=== PATIENT | female | born 1980 ===

== ENCOUNTER 2023-11-05 16:12 | Outpatient (REF) | payer BC, SELFPAY ==
[2023-11-05 20:07] LABS: Abs Immature Grans 0.02 10^3/uL (0.0-0.06); Absolute Basophil Count 0.04 10^3/uL (0.0-0.2); Absolute Eosinophil Count 0.17 10^3/uL (0.0-0.7); Absolute Lymphocyte Count 1.71 10^3/uL (1.2-3.4); Absolute Monocyte Count 0.43 10^3/uL (0.1-0.8); Absolute Neutrophil Count 5.57 10^3/uL (1.2-6.7); Basophils % 0.5; Eosinophils % 2.1; HCT 43.6 % (36.0-46.0); HGB 14.6 g/dL (11.2-15.7); Immature Grans % 0.3; Lymphocytes % 21.5; MCHC 33.5 % (32.0-36.0); MCV 90 fL (80-95); MPV 11.9 fL (8.0-11.0); Monocytes % 5.4; Neutrophils % 70.2; Platelet Count 243 10^3/uL (130-400); RBC 4.86 10^6/uL (3.93-5.22); RDW-SD 39.1 fL; WBC 7.94 10^3/uL (4.4-10.8)
[2023-11-05 20:27] LABS: ALT 20 U/L (14-59); AST 21 U/L (15-37); Albumin 3.9 g/dL (3.4-5.0); Alkaline Phosphatase 56 U/L (46-116); Anion Gap 10.5 mmol/L (3-11); BUN 16 mg/dL (7-18); Bilirubin, Total 0.4 mg/dL (0.2-1.0); CO2 24.5 mmol/L (21.0-32.0); CREATININE 0.8 mg/dL (0.55-1.02); Chloride 105 mmol/L (98-107); Estimated GFR 94.87 (mL/min/1.73m2); Glucose 104 mg/dL (74-106); Potassium 4.3 mmol/L (3.5-5.1); Sodium 140 mmol/L (136-145); TSH (W/Ref FT4) 1.16 uIU/mL (0.36-3.74); Total Protein 7.3 g/dL (6.4-8.2)
[2023-11-05 20:31] LABS: Calcium 8.5 mg/dL (8.5-10.1)
[2023-11-05 20:33] LABS: Hemoglobin A1C 5.3 % (<5.7)
[2023-11-05 20:47] LABS: Calculated LDL 105 mg/dL (<100); Cholesterol 193 mg/dL (<200); HDL Cholesterol 81 mg/dL (40-60); Triglyceride 35 mg/dL (<150)
[2023-11-05 20:54] LABS: Vitamin D 25 Total 45.7 ng/mL (30-100)
[2023-11-07 10:25] LABS: Syphilis Serology (RPR) Negative (Negative)
[2023-11-07 10:37] LABS: Hepatitis B Surface Ag Negative (Negative)
[2023-11-07 11:16] LABS: HIV-1/2 Ag & Ab Screen Negative (Negative)
[2023-11-07 13:01] LABS: Hepatitis C Ab w Rflx HCV PCR Negative (Negative)
== END 2023-11-05 16:13 | disposition home or self-care (01) ==
LOC: NCHCN 16:12
PROVIDERS: Visit Provider Physician Assistant
DX: E55.9 Vitamin D deficiency, unspecified (principal); Z11.3 Encounter for screening for infections with a predominantly sexual mode of transmission; Z13.6 Encounter for screening for cardiovascular disorders
CPT/HCPCS: 80053; 80061; 82306; 86803; 87340; 87389; 87491; 87591; 83036; 84443; 85025; 86592

== ENCOUNTER 2023-11-06 20:04 | Outpatient (REF) | payer BC, SELFPAY ==
[2023-11-08 12:37] LABS: Chlamydia Result Negative (Negative); GC Result Negative (Negative)
== END 2023-11-06 20:05 | disposition home or self-care (01) ==
LOC: NCHCN 20:04
PROVIDERS: Visit Provider Physician Assistant
DX: Z11.3 Encounter for screening for infections with a predominantly sexual mode of transmission (principal)
CPT/HCPCS: 87491; 87591